=== PATIENT | male | born 1935 | race African-American/Black ===

== ENCOUNTER 2020-12-16 00:43 | Inpatient (IN) | payer OTHER ==
[2020-12-16 01:59] LABS: BASO % 0.5 % (0-2.0); EOS % 4.6 % (0-4.5); HEMATOCRIT 40.9 % (35.4-49); HEMOGLOBIN 13.7 GM/dL (11.7-16.9); LYMPH % 20.1 % (8-40); MCH 28.8 pg (25.7-33.7); MCHC 33.5 g/dl (32.0-35.9); MEAN CELL VOLUME 85.9 fl (80-96); MEAN PLT VOLUME 9.1 fl (7.5-11.1); MONO % 7.7 % (3.8-10.2); NEUT % 67.1 % (42.8-82.8); PLATELET COUNT 221 K/MM3 (134-434); RBC 4.76 M/mm3 (4.00-5.60); RDW 15.7 % (11.9-15.9); WHITE BLOOD COUNT 9.9 K/mm3 (4.0-10.0)
[2020-12-16 02:04] LABS: ALBUMIN 3.6 g/dl (3.4-5.0); BLOOD UREA NITROGEN 18.6 mg/dL (7-18)
[2020-12-16 02:08] LABS: BILIRUBIN,TOTAL 0.7 mg/dL (0.2-1); CREATININE 2.3 mg/dL (0.55-1.3); INR 1.05 (0.83-1.09); PROTHROMBIN TIME (PATIENT) 12.7 SEC (9.7-13.0); TOT PROT 7.8 g/dl (6.4-8.2)
[2020-12-16 02:11] LABS: ACTIVATED PTT 27.8 SECONDS (25.2-36.5)
[2020-12-16 02:17] LABS: CALCIUM 8.5 mg/dL (8.5-10.1)
[2020-12-16] MEDS ORDERED: ASPIRIN 81 MG CHEWABLE TABLETS PO ONE (02:24)
[2020-12-16] MEDS ORDERED: ASPIRIN COATED 81 MG TABLET.EC ONE (02:25)
[2020-12-16] MEDS ORDERED: HEPARIN NA (PORCINE) 5,000 UNITS/ML 1ML VIAL IVPUSH PRN ×2 (02:39)
[2020-12-16] MEDS ORDERED: HEPARIN - 25,000 UNIT in SODIUM CHLORIDE 495 ML IV SCH (02:45)
[2020-12-16] MEDS ORDERED: HEPARIN INFUSION - 25,000 UNITS/500 ML INFUS.BAG IVPB ONE (02:45)
[2020-12-16] MEDS ORDERED: HEPARIN NA (PORCINE) 5,000 UNITS/ML 1ML VIAL ONE (02:45)
[2020-12-16] MEDS ORDERED: HEPARIN NA (PORCINE) 5,000 UNITS/ML 1ML VIAL SQ ONE (03:16)
[2020-12-16] MEDS ORDERED: LACTATED RINGERS SOLUTION 1000 ML INFUS.BAG IV ONE (04:34)
[2020-12-16] MEDS ORDERED: ATORVASTATIN CA 40 MG TABLET (FP) PO ONE (04:37)
[2020-12-16] MEDS ORDERED: ATORVASTATIN CA 40 MG TABLET (FP) ONE (05:18)
[2020-12-16 05:52] LABS: POTASSIUM 3.9 mmol/L (3.5-5.1)
[2020-12-16 05:54] LABS: CALCIUM 8.6 mg/dL (8.5-10.1)
[2020-12-16 05:55] LABS: ALBUMIN 3.5 g/dl (3.4-5.0); BLOOD UREA NITROGEN 18.5 mg/dL (7-18); MAGNESIUM 2.3 mg/dL (1.8-2.4)
[2020-12-16 05:58] LABS: BILIRUBIN,TOTAL 0.5 mg/dL (0.2-1); CREATININE 1.9 mg/dL (0.55-1.3); PHOSPHOROUS 2.6 mg/dL (2.5-4.9); TOT PROT 6.9 g/dl (6.4-8.2)
[2020-12-16 06:41] VITALS: BMI 31.6
[2020-12-16 06:58] LABS: BASO % 0.7 % (0-2.0); HEMATOCRIT 38.2 % (35.4-49); HEMOGLOBIN 12.7 GM/dL (11.7-16.9); LYMPH % 23.3 % (8-40); MCH 28.7 pg (25.7-33.7); MCHC 33.2 g/dl (32.0-35.9); MEAN CELL VOLUME 86.4 fl (80-96); MEAN PLT VOLUME 8.6 fl (7.5-11.1); MONO % 9.2 % (3.8-10.2); NEUT % 61.8 % (42.8-82.8); PLATELET COUNT 199 K/MM3 (134-434); RBC 4.42 M/mm3 (4.00-5.60); RDW 15.8 % (11.9-15.9); WHITE BLOOD COUNT 8.9 K/mm3 (4.0-10.0)
[2020-12-16] MEDS ORDERED: SODIUM CHLORIDE 0.45% 1,000 ML IV SCH (08:00)
[2020-12-16] MEDS ORDERED: SODIUM CHLORIDE 1,000 ML IV SCH (08:00)
[2020-12-16] MEDS ORDERED: LISINOPRIL 5 MG TABLET PO SCH (10:00)
[2020-12-16] MEDS ORDERED: ASPIRIN 81 MG CHEWABLE TABLETS PO SCH (10:00)
[2020-12-16] MEDS ORDERED: metoPROLOL SUCCINATE 25 MG TAB.SR.24H (FP) PO SCH (10:00)
[2020-12-16] MEDS ORDERED: ATORVASTATIN CA 40 MG TABLET (FP) PO SCH (10:00)
[2020-12-16] MEDS ORDERED: CLOPIDOGREL BISULFATE 75 MG TABLET (FP) PO SCH (10:00)
[2020-12-16] MEDS ORDERED: POLYETHYLENE GLYCOL 3350 119 GM BTL PO SCH (10:00)
[2020-12-16] MEDS ORDERED: metoPROLOL SUCCINATE 25 MG TAB.SR.24H (FP) PO ONE (10:59)
[2020-12-16] MEDS ORDERED: INSULIN SLIDING SCALE (NOVOLOG) 1 VIAL SQ SCH (11:00)
[2020-12-16] MEDS ORDERED: PANTOPRAZOLE 40 MG TABLET PO SCH (11:15)
[2020-12-16] MEDS ORDERED: CLOPIDOGREL BISULFATE 300 MG TABLET PO ONE (11:43)
[2020-12-16] MEDS ORDERED: PT OWN MED DRAWER 7, Y5N ONE (13:30)
[2020-12-16 14:27] LABS: INR 1.04 (0.83-1.09); PROTHROMBIN TIME (PATIENT) 12.8 SEC (9.7-13.0)
[2020-12-16 14:29] LABS: ACTIVATED PTT 61.3 SECONDS (25.2-36.5)
[2020-12-16 14:53] LABS: PH,URINE 7.5 (5.0-8.0); URINE APPEARANCE CLEAR; URINE BILIRUBIN NEGATIVE (NEGATIVE); URINE COLOR YELLOW; URINE GLUCOSE (UA) NEGATIVE (NEGATIVE); URINE KETONE NEGATIVE (NEGATIVE); URINE LEUK ESTERASE NEGATIVE (NEGATIVE); URINE NITRITE NEGATIVE (NEGATIVE); URINE PROTEIN NEGATIVE (NEGATIVE); URINE UROBILINOGEN 0.2 mg/dL (0.2-1.0)
[2020-12-16 15:29] VITALS: BP 132/77; PULSE 65; TEMP 98.2
[2020-12-16] MEDS ORDERED: SENNOSIDES 8.6MG TABLET (FP) PO SCH (22:00)
[2020-12-17] MEDS ORDERED: CLOPIDOGREL BISULFATE 75 MG TABLET (FP) PO SCH (10:00)
== END 2020-12-16 15:26 | disposition short-term general hospital (02) | DRG 281 ==
LOC: JER 00:43 → J4W 02:27
PROVIDERS: ADMIT Hospitalist; ATTEND Internal Medicine
DX: I21.4 Non-ST elevation (NSTEMI) myocardial infarction (principal); N17.9 Acute kidney failure, unspecified; I12.9 Hypertensive chronic kidney disease with stage 1 through stage 4 chronic kidney disease, or unspecified chronic kidney disease; N18.9 Chronic kidney disease, unspecified; E78.5 Hyperlipidemia, unspecified; I25.10 Atherosclerotic heart disease of native coronary artery without angina pectoris; Z95.5 Presence of coronary angioplasty implant and graft; K59.00 Constipation, unspecified
CPT/HCPCS: 36415; 71045-TC-FY; 80053; 81003; 82436; 82565; 82962; 83036; 83605; 83735; 84100; 84133; 84300; 84484; 85025; 85610; 85730; 93005; 93010; 99285-25; C9803; J1644; U0003

== ENCOUNTER 2022-06-07 14:53 | Emergency (ER) | payer OTHER ==
[2022-06-07 15:06] VITALS: TEMP 98.3; BMI 29.5
[2022-06-07] MEDS ORDERED: ASPIRIN 81 MG CHEWABLE TABLETS PO ONE (15:24)
[2022-06-07] MEDS ORDERED: ASPIRIN 81 MG CHEWABLE TABLETS ONE (15:33)
[2022-06-07] MEDS ORDERED: HEPARIN NA (PORCINE) 5,000 UNITS/ML 1ML VIAL IVPUSH PRN ×4 (15:54→16:00)
[2022-06-07] MEDS ORDERED: HEPARIN - 25,000 UNIT in SODIUM CHLORIDE 495 ML IV SCH (16:00)
[2022-06-07] MEDS ORDERED: HEPARIN NA (PORCINE) 5,000 UNITS/ML 1ML VIAL IVPUSH ONE (16:00)
[2022-06-07 16:19] LABS: BASO % 1.2 % (0-2.0); EOS % 7.1 % (0-4.5); HEMATOCRIT 40.3 % (35.4-49); HEMOGLOBIN 13.4 GM/dL (11.7-16.9); LYMPH % 29.5 % (8-40); MCH 27.4 pg (25.7-33.7); MCHC 33.1 g/dl (32.0-35.9); MEAN CELL VOLUME 82.8 fl (80-96); MEAN PLT VOLUME 8.1 fl (7.5-11.1); MONO % 9.3 % (3.8-10.2); NEUT % 52.9 % (42.8-82.8); PLATELET COUNT 199 10^3/uL (134-434); RBC 4.87 M/mm3 (4.00-5.60); RDW 15.8 % (11.9-15.9); WHITE BLOOD COUNT 6.2 K/mm3 (4.0-10.0)
[2022-06-07 16:27] LABS: CHLORIDE 111 mmol/L (98-107); SODIUM 143 mmol/L (136-145)
[2022-06-07 16:28] LABS: CALCIUM 8.9 mg/dL (8.5-10.1)
[2022-06-07 16:29] LABS: ALBUMIN 3.7 g/dl (3.4-5.0); ANION GAP 4 MMOL/L (8-16); BLOOD UREA NITROGEN 17.3 mg/dL (7-18); CO2 28 mmol/L (21-32); GLUCOSE,RANDOM 99 mg/dL (74-106); INR 1.05 (0.83-1.09); PROTHROMBIN TIME (PATIENT) 12.1 SEC (9.7-13.0)
[2022-06-07 16:31] LABS: ACTIVATED PTT 30.3 SECONDS (25.2-36.5)
[2022-06-07 16:33] LABS: SGOT/AST 28 U/L (15-37); SGPT/ALT 28 U/L (13-61)
[2022-06-07 16:34] LABS: BILIRUBIN,TOTAL 0.6 mg/dL (0.2-1); TOT PROT 7.4 g/dl (6.4-8.2)
[2022-06-07 16:35] LABS: ALK PHOS 106 U/L (45-117)
[2022-06-07] MEDS ORDERED: HEPARIN NA (PORCINE) 5,000 UNITS/ML 1ML VIAL ONE (17:31)
[2022-06-07] MEDS ORDERED: HEPARIN INFUSION - 25,000 UNITS/500 ML INFUS.BAG IVPB ONE (17:32)
[2022-06-07 18:52] VITALS: BP 148/81; PULSE 46; RESP 16
== END 2022-06-07 20:37 | disposition short-term general hospital (02) ==
LOC: JER 14:53
PROC: 3E033GC Introduction of Other Therapeutic Substance into Peripheral Vein, Percutaneous Approach (ICD-10-PCS; principal; 2022-06-07)
PROC: 3E033GC Introduction of Other Therapeutic Substance into Peripheral Vein, Percutaneous Approach (ICD-10-PCS; 2022-06-07)
PROC: 3E033GC Introduction of Other Therapeutic Substance into Peripheral Vein, Percutaneous Approach (ICD-10-PCS; 2022-06-07)
PROC: 3E033GC Introduction of Other Therapeutic Substance into Peripheral Vein, Percutaneous Approach (ICD-10-PCS; 2022-06-07)
PROC: 3E033GC Introduction of Other Therapeutic Substance into Peripheral Vein, Percutaneous Approach (ICD-10-PCS; 2022-06-07)
PROC: 3E033GC Introduction of Other Therapeutic Substance into Peripheral Vein, Percutaneous Approach (ICD-10-PCS; 2022-06-07)
DX: I20.8 Other forms of angina pectoris (principal)
CPT/HCPCS: 36415; 71045-TC-FY; 80053; 84484; 85025; 85610; 85730; 93005; 93010; 99285-25; C9803-CS; J1644; U0003; U0005

== ENCOUNTER 2022-09-07 13:21 | Emergency (ER) | payer OTHER ==
[2022-09-07 13:54] VITALS: BP 152/78; PULSE 64; RESP 18; TEMP 98.1; BMI 30.1
[2022-09-07 18:22] LABS: BASO % 0.8 % (0-2.0); EOS % 5.6 % (0-4.5); HEMATOCRIT 40.9 % (35.4-49); HEMOGLOBIN 13.1 GM/dL (11.7-16.9); LYMPH % 29.3 % (8-40); MCH 26.7 pg (25.7-33.7); MEAN CELL VOLUME 83.4 fl (80-96); MEAN PLT VOLUME 8.4 fl (7.5-11.1); MONO % 7.3 % (3.8-10.2); PLATELET COUNT 207 10^3/uL (134-434); RBC 4.91 M/mm3 (4.00-5.60); RDW 16.1 % (11.9-15.9); WHITE BLOOD COUNT 5.1 K/mm3 (4.0-10.0)
[2022-09-07 19:16] LABS: CALCIUM 8.6 mg/dL (8.5-10.1)
[2022-09-07 19:17] LABS: ALBUMIN 3.4 g/dl (3.4-5.0); BLOOD UREA NITROGEN 15.5 mg/dL (7-18)
[2022-09-07 19:20] LABS: CREATININE 1.8 mg/dL (0.55-1.3)
[2022-09-07 19:22] LABS: BILIRUBIN,TOTAL 0.5 mg/dL (0.2-1); TOT PROT 6.9 g/dl (6.4-8.2)
[2022-09-07 19:25] LABS: N-TERMINAL BNP 327.3 pg/ml (5-450)
== END 2022-09-07 20:02 | disposition left against medical advice (07) ==
LOC: JER 13:21
DX: M54.89 Other dorsalgia (principal); R09.89 Other specified symptoms and signs involving the circulatory and respiratory systems
CPT/HCPCS: 0241U-QW; 36415; 71045-TC-FY; 80053; 83880; 84484; 85025; 93005; 93010; 99285-25